=== PATIENT | female | born 1985 | race Native Hawaiian/Other Pacific Islander ===

== ENCOUNTER 2017-03-23 22:36 | Emergency (ER) | payer MEDICAID ==
[~2017-03-23] VITALS: Ht 149.9 cm; Wt 76.8 kg
[2017-03-23 22:43] VITALS: BP 122/73; PULSE 70; RESP 20; TEMP 98.3; O2SAT 100
--- NOTE | 2017-03-23 23:32 | PD ---
HPI Chief Complaint: Back/ Neck Pain or Injury Time Seen by Provider: 23:24 Travel History International Travel<30 days: No Contact w/Intl Traveler<30days: No Traveled to known affect area: No History of Present Illness HPI The patient is a 31-year-old female with a history of muscle spasms in her back who complains of back pain in the left lumbosacral area. The pain is not radiating and she denies any bladder or bowel dysfunction. She is not employed and takes care of her children at home. The muscle spasm/pain has been going on for 2 hours now. PFSH Past Medical History Diminished Hearing: No Musculoskeletal: Yes (BACK SPASMS) Immunizations Current: Yes Thyroid Disease: Yes (HYPO) Influenza Vaccination: No ?: Not LMP: 11 18 17 : 9 Para: 2 Miscarriage: 1 : 6 Tubal Ligation: Yes Past Surgical History Section: Yes Social History Alcohol Use: Yes (RARE) Tobacco Use: Yes (6-7 CIGS DAILY) Substance Use: No Allergies-Medications (Allergen,Severity, Reaction): Coded Allergies: No Known Allergies (Unverified Adverse Reaction, Unknown, 03/23/17) Reported Meds & Prescriptions Reported Meds & Active Scripts Active Flexeril (Cyclobenzaprine HCl) 10 Mg Tab 10 Mg PO TID Ibuprofen 600 Mg Tab 600 Mg PO TID Review of Systems Except as stated in HPI: all other systems reviewed are Neg Physical Exam Narrative GENERAL: Well-nourished, well-developed patient in slight apparent distress with her left muscle spasms. Her vital signs are normal. SKIN: Focused skin assessment warm/dry. HEAD: Normocephalic. EYES: No scleral icterus. No injection or drainage. NECK: Supple, trachea midline. No JVD or lymphadenopathy. CARDIOVASCULAR: Regular rate and rhythm without murmurs, gallops, or rubs. RESPIRATORY: Breath sounds equal bilaterally. No accessory muscle use. GASTROINTESTINAL: Abdomen soft, non-tender, nondistended. MUSCULOSKELETAL: No cyanosis, or edema. There is no thoracic or lumbosacral spine tenderness. The tenderness is all on the musculature to the left of the lumbosacral spine. I can easily reproduce the pain by pressing in this area. Straight leg raising is normal, deep tendon reflexes are +2 bilaterally both patella Achilles and pinprick is normal. BACK: Nontender without obvious deformity. No CVA tenderness. Data Data Last Documented VS Vital Signs Date Time Temp Pulse Resp B/P (MAP) Pulse Ox O2 Delivery O2 Flow Rate FiO2 03/23/17 22:43 98.3 70 20 122/73 (89) 100 Orders Orders Ketorolac Inj (Toradol Inj) (03/23/17 23:45) Orphenadrine Inj (Norflex Inj) (03/23/17 23:45) MDM Medical Decision Making Medical Screen Exam Complete: Yes Emergency Medical Condition: Yes Medical Record Reviewed: Yes Differential Diagnosis Acute myofascial strain, herniated nucleus pulposus-unlikely, transverse process fracture-highly unlikely Narrative Course The patient has an acute lumbosacral strain. She will be given Motrin to take 600 mg 3 times daily and Flexeril. She should follow-up with her primary care physician. Diagnosis Primary Impression: Acute myofascial strain of lumbosacral region Additional Instructions: As we discussed, use a heating pad on as well as setting an interposed a towel between your skin and the pad. Warmth is good but hot is not more helpful and can be dangerous. Med/Other Pt SpecificInfo: Prescription(s) given Scripts Cyclobenzaprine (Flexeril) 10 Mg Tab 10 MG PO TID for Muscle Spasm, #33 TAB 0 Refills Prov: Rojas Smith MD 03/23/17 Ibuprofen (Ibuprofen) 600 Mg Tab 600 MG PO TID, #33 TAB 0 Refills Prov: Rojas Smith MD 03/23/17 Disposition: 01 DISCHARGE HOME Condition: Stable Rojas Smith MD Mar 23, 2017 23:32
[2017-03-23] MEDS ORDERED: IBUP-232 PO (23:34)
[2017-03-23] MEDS ORDERED: CYCL10TA PO (23:34)
[2017-03-23] MEDS ORDERED: KETOROLAC TROMETHAMINE 60 MG/2 ML (IM) VIAL IM ONE (23:45)
[2017-03-23] MEDS ORDERED: ORPHENADRINE INJ 60 MG/2 ML AMP IM ONE (23:45)
[2017-03-24 00:10] VITALS: BP 122/61
== END 2017-03-24 00:14 | disposition home or self-care (01) ==
LOC: PHED 22:36
DX: S39.012A Strain of muscle, fascia and tendon of lower back, initial encounter (principal); F17.210 Nicotine dependence, cigarettes, uncomplicated; X58.XXXA Exposure to other specified factors, initial encounter
CPT/HCPCS: 96372; 99284; J1885; J2360

== ENCOUNTER 2017-08-25 14:13 | Emergency (ER) | payer MEDICAID ==
[~2017-08-25] VITALS: Ht 154.9 cm; Wt 76.0 kg
[~2017-08-25 14:13] MED LIST: CYCL10TA PO; IBUP-232 PO
[2017-08-25 14:20] VITALS: BP 139/82; PULSE 75; RESP 20; TEMP 98.1; O2SAT 99
[2017-08-25] MEDS ORDERED: LEVO50TA4 PO (14:36)
[2017-08-25] MEDS ORDERED: IBUP-232 PO (14:38)
[2017-08-25] MEDS ORDERED: IBUPROFEN 600 MG TAB PO ONE (14:45)
--- NOTE | 2017-08-25 14:54 | PD ---
HPI Chief Complaint: Injury Time Seen by Provider: 14:26 Travel History International Travel<30 days: No Contact w/Intl Traveler<30days: No Traveled to known affect area: No History of Present Illness HPI 31-year-old female presents emergency department with over a week of left-sided pain, numbness, and tingling in the first second and third fingers, which is getting progressively worse. Patient has history of a cystlike area on the volar ulnar wrist which she feels may be contributing to her current symptoms. 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 Patient is right-handed however. She denies any infection. No history of IV drug use. No fever, chills, or other symptoms. Patient states he was seen by her primary care physician and set up for an ultrasound of the wrist, but was not given a splint or medication. She states it seems to be worse after working and at night. Pain is 7 out of 10. She has no known drug allergies. PFSH Past Medical History Diminished Hearing: No Musculoskeletal: Yes (BACK SPASMS) Immunizations Current: Yes Thyroid Disease: Yes (HYPO) ?: Not : 9 Para: 2 Miscarriage: 1 : 6 Tubal Ligation: Yes Past Surgical History Section: Yes Social History Alcohol Use: Yes (RARE) Tobacco Use: Yes (6-7 CIGS DAILY) Substance Use: No Allergies-Medications (Allergen,Severity, Reaction): Coded Allergies: No Known Allergies (Unverified Adverse Reaction, Unknown, 08/25/17) Reported Meds & Prescriptions Reported Meds & Active Scripts Active Ibuprofen 600 Mg Tab 600 Mg PO Q6H PRN Reported Levothyroxine (Levothyroxine Sodium) 50 Mcg Tab 50 Mcg PO DAILY Review of Systems General / Constitutional: No: Fever Eyes: No: Visual changes HENT: No: Headaches Cardiovascular: No: Chest Pain or Discomfort Respiratory: No: Shortness of Breath Gastrointestinal: No: Abdominal Pain Genitourinary: No: Dysuria Musculoskeletal: Positive: Arthralgias, Pain Skin: No Rash Neurologic: Positive: Paresthesia, No: Weakness Psychiatric: No: Depression Endocrine: No: Polydipsia Hematologic/Lymphatic: No: Easy Bruising Physical Exam Narrative GENERAL: Patient appears in no obvious distress. SKIN: Warm and dry. Normal color. Normal turgor. No signs of cellulitis. HEAD: Atraumatic. Normocephalic. EYES: Pupils equal and round. No scleral icterus. No injection or drainage. ENT: No nasal bleeding or discharge. Mucous membranes pink and moist. Pharynx is clear. Airways patent. NECK: Trachea midline. Supple and nontender. CARDIOVASCULAR: Regular rate and rhythm. RESPIRATORY: No accessory muscle use. Clear to auscultation. Breath sounds equal bilaterally. MUSCULOSKELETAL: Extremities without clubbing, cyanosis, or edema. No obvious deformities. Left wrist appears normal with question of small ganglion cyst along the ulnar volar aspect. Patient has positive Tinel sign at the carpal tunnel. Dynamo Tender strength is somewhat diminished on the left compared to the right. Neurovascular exam is otherwise unremarkable. There is no Tinel's at the ulnar nerve on the left. NEUROLOGICAL: Awake and alert. No obvious cranial nerve deficits. Motor grossly within normal limits. Five out of 5 muscle strength in the arms and legs. Normal speech. PSYCHIATRIC: Appropriate mood and affect; insight and judgment normal. Data Data Last Documented VS Vital Signs Date Time Temp Pulse Resp B/P (MAP) Pulse Ox O2 Delivery O2 Flow Rate FiO2 08/25/17 14:20 98.1 75 20 139/82 (101) 99 Orders Orders Ibuprofen (Motrin) (08/25/17 14:45) Splint Or Brace Apply/Monitor (08/25/17 14:36) MDM Medical Decision Making Medical Screen Exam Complete: Yes Emergency Medical Condition: Yes Differential Diagnosis Left wrist pain. Left hand pain. Carpal tunnel. Neuralgia. Narrative Course Patient will be treated with carpal tunnel splint to be worn at all times as discussed. Patient is given ibuprofen 600 mg 4 times daily #40. Patient is to stretch and ice the area as discussed. Recommend follow-up with hand specialist as discussed. Work note with restrictions as given. Diagnosis Primary Impression: Carpal tunnel syndrome, left Referrals: Ck Case MD call for appointment Patient Instructions: Carpal Tunnel Surgery (DC), Carpal Tunnel Syndrome (GEN) , Carpal Tunnel Syndrome Exercises (GEN), General Instructions Departure Forms: Work Release Enter return to work date: Aug 26, 2017 Special Instructions: Patient should wear her carpal tunnel splint at all times while at work. This should occur until cleared by her hand surgeon. Additional Instructions: Patient will be treated with carpal tunnel splint to be worn at all times as discussed. Patient is given ibuprofen 600 mg 4 times daily #40. Patient is to stretch and ice the area as discussed. Recommend follow-up with hand specialist as discussed. Work note with restrictions as given. Med/Other Pt SpecificInfo: Prescription(s) given Scripts Ibuprofen (Ibuprofen) 600 Mg Tab 600 MG PO Q6H Y for Pain/Inflammation, #40 TAB 0 Refills Prov: Shan Gasca MD 08/25/17 Disposition: 01 DISCHARGE HOME Condition: Stable Cullen Casper Aug 25, 2017 14:54
== END 2017-08-25 15:10 | disposition home or self-care (01) ==
LOC: NEPD 14:13
DX: G56.02 Carpal tunnel syndrome, left upper limb (principal); F17.210 Nicotine dependence, cigarettes, uncomplicated; E03.9 Hypothyroidism, unspecified
CPT/HCPCS: 99283; L3908